=== PATIENT | female | born 1990 | race American Indian/Alaskan Native ===

== ENCOUNTER 2016-07-03 19:14 | Outpatient (CLI) | payer MEDICAID ==
[2016-07-03] MEDS ORDERED: LACTATED RINGERS 1,000 ML IV ONE (19:46)
[2016-07-03 20:33] LABS: Bilirubin,Urine NEG (Negative); Blood,Urine NEG (Negative); Ketones,Urine NEG (Negative); Leukocyte Esterase,Urine NEG (Negative); Mucus,Urine 2+ /HPF; Nitrite,Urine NEG (Negative); Protein,Urine <15 mg/dL mg/dL (Negative); Urobilinogen,Urine < 2.0 mg/dL (<2.0)
[2016-07-03] MEDS ORDERED: DIFLUCAN PO ONE (20:54)
[2016-07-03 22:51] LABS: Basophils % (Auto) 0.6 % (0.0-1.8); Eosinophils % (Auto) 1.2 % (0.0-4.3); Hematocrit 31.9 % (30.3-42.9); Hemoglobin 10.9 gm/dl (10.1-14.3); Mean Corpuscular HGB Conc 34 % (30-34); Mean Corpuscular Hemoglobin 30 pg (28-32); Mean Corpuscular Volume 88 fl (79-97); Platelet Count 168 K/mm3 (140-440); Red Blood Count 3.62 M/mm3 (3.65-5.03); White Blood Count 13.4 K/mm3 (4.5-11.0)
[2016-07-03] MEDS ORDERED: TYLENOL PO ONE (22:57)
[2016-07-03 23:06] LABS: INR 1.08 (0.87-1.13); Partial Thromboplastin Time 32.8 Sec. (24.2-36.6)
[2016-07-03 23:44] VITALS: BP 127/65
--- NOTE | 2016-07-04 09:14 | Ultrasound Report ---
OB ULTRASOUND History: Vaginal bleeding during , trauma. Technique: Transabdominal ultrasound with Doppler interrogation. Gestation: Single Position: Breech Amniotic Fluid: Within normal limits KELTON = not measured cm Placenta: Anterior, fundal Placental Grade: 0 There is no evidence for placental abruption. Heart Rate: 148 BPM Cervical length: 3.2 cm (Normal > 3 cm) NEUROANATOMY VISUALIZED: Choroid Plexus Cisterna Magnum Cerebellum Lateral Ventricle ANATOMY VISUALIZED: Stomach Kidneys Bladder Diaphragm Heart 3 Vessel Cord Abd. Cord Insert SPINE VISUALIZED: Limited spine due to position The following are not demonstrated due to maternal body habitus or lie: Four-chamber heart, spine BPD: 4.5 cm = 19 w 4 d HC: 17.2 cm = 19 w 5 d AC: 14.7 cm = 20 w 0 d FL: 2.8 cm = 18 w 3 d HC/AC Ratio: 1.17 Cephalic Index: 80.8 Estimated Weight: 286 grams LMP: 02/10/16 Clinical age = 20 w 4 d EDC: 11/16/16 US Gest. Age = 19 w 3 d EDC: 11/24/16
== END 2016-07-03 23:53 | disposition home or self-care (01) ==
LOC: TRG 19:14
PROVIDERS: ATTEND Obstetrics & Gynecology
DX: O46.92 Antepartum hemorrhage, unspecified, second trimester (principal); O32.1XX0 Maternal care for breech presentation, not applicable or unspecified; O71.9 Obstetric trauma, unspecified; O47.02 False labor before 37 completed weeks of gestation, second trimester; Z3A.21 21 weeks gestation of pregnancy
CPT/HCPCS: 36415; 76805; 81001; 85025; 85460; 85610; 85730; 86850; 86900; 86901

== ENCOUNTER 2016-08-05 10:11 | Outpatient (CLI) | payer MEDICAID | END 2016-08-05 11:41 | disposition home or self-care (01) | LOC: TRG 10:11 | PROVIDERS: ATTEND Obstetrics & Gynecology | DX: O47.02 False labor before 37 completed weeks of gestation, second trimester (principal); Z3A.26 26 weeks gestation of pregnancy | CPT/HCPCS: 59025 ==

== ENCOUNTER 2016-09-27 13:26 | Outpatient (CLI) | payer MEDICAID ==
[2016-09-27] MEDS ORDERED: LACTATED RINGERS 500 ML IV ONE (13:59)
[2016-09-27 14:40] LABS: Bacteria,Urine 1+ /HPF (Negative); Bilirubin,Urine NEG (Negative); Blood,Urine NEG (Negative); Ketones,Urine 20 mg/dL (Negative); Leukocyte Esterase,Urine NEG (Negative); Nitrite,Urine NEG (Negative); Protein,Urine <15 mg/dL mg/dL (Negative); Urobilinogen,Urine < 2.0 mg/dL (<2.0); WBC,Urine < 1.0 /HPF (0.0-6.0)
[2016-09-27 15:45] VITALS: BP 117/69
== END 2016-09-27 17:38 | disposition home or self-care (01) ==
LOC: TRG 13:26
PROVIDERS: ATTEND Obstetrics & Gynecology
DX: O47.03 False labor before 37 completed weeks of gestation, third trimester (principal); Z3A.32 32 weeks gestation of pregnancy
CPT/HCPCS: 59025; 81001

== ENCOUNTER 2016-10-24 05:13 | Inpatient (IN) | payer MEDICAID ==
[2016-10-24] MEDS ORDERED: XYLOCAINE 2% INFILTRATI ONE (05:43)
[2016-10-24] MEDS ORDERED: BRETHINE IVP PRN (05:43)
[2016-10-24] MEDS ORDERED: ePHEDrine SULFATE IV PRN (05:43)
[2016-10-24] MEDS ORDERED: PHENERGAN PR PRN ×2 (05:43→09:00)
[2016-10-24] MEDS ORDERED: MINERAL OIL PO PRN (05:43)
[2016-10-24] MEDS ORDERED: STADOL IV PRN (05:43)
[2016-10-24] MEDS ORDERED: BRETHINE SUB-Q PRN (05:43)
[2016-10-24] MEDS ORDERED: ZOFRAN IV PRN ×2 (05:43→09:00)
[2016-10-24] MEDS ORDERED: NARCAN 0.4 MG/1 ML IV PRN (05:43)
[2016-10-24] MEDS ORDERED: SUBLIMAZE IV PRN (05:43)
--- NOTE | 2016-10-24 05:58 | History and Physical Report ---
History of Present Illness Date of examination: 10/24/16 Date of admission: 10/24/16 05:28 Chief complaint: leaking and contractions History of present illness: This is a 26 yo EDC 11/17/16 at 36+4 weeks here after accident at [facility]. She was noted to be closed at that hospital and released and then she began having abdominal pain and leaking. Currently she is c/o leaking and chloe and noted to be 4-5 cm . course initiated at 12 weeks with [facility] IUGR at 0% 1st trimester bleeding Hsv2+ ( no lesions) EIF in left ventricle _ APA hx of IUFD in 2nd trimester Past History - Obstetrical History Expected Date of Delivery: 11/17/16 Actual Gestation: 36 Week(s) 4 Day(s) : 3 Para: 0 Hx # Term Pregnancies: 0 Number of Pregnancies: 0 Spontaneous Abortions: 1 Induced : 1 Number of Living Children: 0 Medications and Allergies Allergies Allergy/AdvReac Type Severity Reaction Status Date / Time No Known Allergies Allergy Verified 05/23/14 18:02 Home Medications Medication Instructions Recorded Confirmed Last Taken Type Acetamin/Codeine 120-12Mg/5 ml 5 ml PO TID PRN #30 ml 05/23/14 Unknown Rx [Tylenol/Codeine] Ibuprofen [Motrin] 600 mg PO Q8H PRN #60 tablet 05/23/14 Unknown Rx Ondansetron [Zofran Odt] 4 mg PO Q6H #20 tab.rapdis 05/23/14 Unknown Rx HYDROcodone/APAP 5-325 [Elmo 1 each PO Q6HR PRN #14 tablet 04/18/15 Unknown Rx 5/325] Ondansetron [Zofran Odt] 4 mg PO TID #14 tab.rapdis 04/18/15 Unknown Rx Fexofenadine/Pseudoephedrine 1 each PO Q12H #20 tab.er.12h 05/04/15 Unknown Rx [Miya-D 12 Hour Tablet] Prednisone [predniSONE 10 mg 10 mg PO .TAPER #1 tab.ds.pk 05/04/15 Unknown Rx (6-Day Pack, 21 Tabs)] guaiFENesin/CODEINE [Robitussin AC] 5 ml PO Q8H #120 ml 05/04/15 Unknown Rx Review of Systems All systems: negative Genitourinary: leakage of fluid, contractions - Physical Exam Breasts: Positive: normal Cardiovascular: Regular rate, Normal S1 Lungs: Positive: Clear to auscultation, Normal air movement Abdomen: Positive: normal appearance, soft, distention, normal bowel sounds. Negative: tenderness Genitourinary (Female): Positive: normal external genitalia, normal perenium Vulva: both: normal Vagina: Positive: normal moisture Uterus: Positive: normal size, normal contour Anus/Rectum: Positive: normal perianal skin Extremities: Positive: normal Deep Tendon Reflex Grade: Normal +2 - Obstetrical FHR: auscultation normal, category 1 Cervical Dilatation: 4 Uterine Tone Measurement Phase: Contraction Uterine Contraction Intensity: Mild Results All other labs normal. Assessment and Plan A/P IUP 36+4 weeks IUGR Active labor SROM clear admit to labor and delivery IVF, labs EFM ( close monitor) offer epidural alert peds of care EIF, IUGR expect vaginal delivery
[2016-10-24] MEDS ORDERED: LACTATED RINGERS 1,000 ML IV SCH (06:00)
[2016-10-24] MEDS ORDERED: PITOCin/NS 20 UNIT/1000ML DRIP 20 UNITS/1,000 ML BAG IV SCH ×2 (06:00→09:00)
[2016-10-24 06:43] LABS: Hematocrit 38.9 % (30.3-42.9); Mean Corpuscular HGB Conc 33 % (30-34); Mean Corpuscular Hemoglobin 29 pg (28-32); Mean Corpuscular Volume 86 fl (79-97); Red Blood Count 4.53 M/mm3 (3.65-5.03); Red Cell Distribution Width 14.5 % (13.2-15.2); White Blood Count 12.4 K/mm3 (4.5-11.0)
[2016-10-24 06:46] LABS: Platelet Count 143 K/mm3 (140-440)
--- NOTE | 2016-10-24 07:50 | Procedure Note ---
OB Delivery Note - Delivery Date of Delivery: 10/24/16 Surgeon: DARIAN ENGLISH Estimated blood loss: other (400 cc) - Vaginal Delivery presentation: vertex Delivery position: OA Intrapartum events: labor-<37 weeks Delivery induction: none Delivery monitor: external FHT, external uterine Route of delivery: Delivery placenta: spontaneous Delivery cord: 3 umbilical vessels Episiotomy: none Delivery laceration: none Anesthesia: none Delivery comments: I was contacted at 650 of the patient noted to be complete and +1 station. I arrived at 715 after delivery. Nurse delivered baby vaginally after 2 pushes at 705 pm in OA presentation. The nares suctioned and cord cut and clamped. [facility] delivered placenta at 713a intact spontaneous with 3 vesel cord. apgars 9 and 9 weight 4 pounds 7 oz without complications of a viable male . Patient tolerated procedure well. EBL 400 cc - Infant A at 1 minute: 9 at 5 minutes: 9 Infant Gender: Male (weight 4 pounds 7 oz)
[2016-10-24] MEDS ORDERED: NORCO 5/325 PO PRN (09:00)
[2016-10-24] MEDS ORDERED: SODIUM CHLORIDE FLUSH SYRINGE 10 ML IV PRN (09:00)
[2016-10-24] MEDS ORDERED: TYLENOL PO PRN (09:00)
[2016-10-24] MEDS ORDERED: TORADOL IV PRN (09:00)
[2016-10-24] MEDS ORDERED: SENOKOT S PO SCH (09:00)
[2016-10-24] MEDS ORDERED: BENADRYL PO PRN (09:00)
[2016-10-24] MEDS ORDERED: PHENERGAN PO PRN (09:00)
[2016-10-24] MEDS ORDERED: TUCKS PAD TP PRN (09:00)
[2016-10-24] MEDS ORDERED: LANSINOH TP PRN (09:00)
[2016-10-24] MEDS: COLACE PO SCH ×2 (09:20→22:00)
[2016-10-24] MEDS: PERCOCET 5/325 PO PRN ×2 (09:20→19:37)
[2016-10-24] MEDS: PRENATAL VITAMIN PO SCH (09:20)
[2016-10-24 09:50] LABS: Urine Drugs of Abuse Note Disclamer
[2016-10-24] MEDS ORDERED: DULCOLAX PR PRN (10:00)
[2016-10-24] MEDS: MOTRIN PO SCH ×2 (12:08→17:11)
[2016-10-24 20:09] LABS: Hematocrit 36.5 % (30.3-42.9); Hemoglobin 12.2 gm/dl (10.1-14.3)
[2016-10-24] MEDS ORDERED: MILK OF MAGNESIA PO PRN (22:00)
[2016-10-25] MEDS: PERCOCET 5/325 PO PRN ×3 (01:02→21:06)
[2016-10-25] MEDS: MOTRIN PO SCH ×4 (01:02→17:42)
[2016-10-25] MEDS ORDERED: BOOSTRIX IM ONE (06:00)
--- NOTE | 2016-10-25 08:43 | Progress Note ---
Assessment and Plan A: Stable PP Day 1 PP H/H: 12.2/36.5 P: D/C in am Subjective - Subjective Date of service: 10/25/16 Patient reports: appetite normal, voiding normally, pain well controlled, ambulating normally : doing well Objective - Vital Signs Latest vital signs: Vital Signs Temp Pulse Resp BP 10/25/16 00:35 97.9 F 85 20 127/76 10/24/16 16:30 98.0 F 87 18 136/83 10/24/16 12:40 97.6 F 86 18 127/86 10/24/16 09:00 98.3 F 79 18 132/79 Intake and Output 10/24/16 10/25/16 10/25/16 22:59 06:59 14:59 Intake Total 600 360 Output Total 800 Balance -200 360 Intake: Oral 600 360 Output: Urine 800 Void 800 Other: Total, Intake Amount 240 120 Total, Output Amount 400 # Voids Void 1 - Exam Breasts: Present: deferred Abdomen: Present: normal appearance, soft. Absent: distention, tenderness Vulva: both: normal Uterus: Present: normal, firm, fundal height below umbilicus. Absent: bogginess , tenderness Extremities: Present: normal
--- NOTE | 2016-10-25 08:46 | Discharge Summary ---
Providers - Providers Date of Admission: 10/24/16 05:28 Date of discharge: 10/26/16 Attending physician: DARIAN ENGLISH MD 10/24/16 12:19 Consult to Case Management [CONS] Routine Services Needed at Discharge: Other Notified:: [id number] Additional Physician Instructions: UDS positive for marijuana. Primary care physician: DARIAN ENGLISH MD Hospitalization Reason for admission: active labor Episiotomy: none Laceration: none Other procedures: none complications: none [place] baby: male Condition at discharge: Good Disposition: DC-01 TO HOME OR SELFCARE Plan - Provider Discharge Summary Activity: routine, no sex for 6 weeks, no heavy lifting 4 weeks, no strenuous exercise Diet: routine Instructions: routine Additional instructions: [] Smoking cessation referral if applicable(refer to patient education folder for contact #) [] Refer to [facility]'s [facility] Booklet Call your doctor immediately for: * Fever > 100.5 * Heavy vaginal bleeding ( >1 pad per hour) * Severe persistent headache * Shortness of breath * Reddened, hot, painful area to leg or breast * Drainage or odor from incision. * Keep incision clean and dry at all times and follow doctor's instructions regarding bathing/showering - Follow up plan Follow up: DARIAN ENGLISH MD [Primary Care Provider] - MATT ONEIL CNM [Advanced Practice Nurse] - (RTO 4 weeks )
[2016-10-25] MEDS: PRENATAL VITAMIN PO SCH (10:39)
[2016-10-25] MEDS: COLACE PO SCH (10:39)
[2016-10-25] MEDS ORDERED: M-M-R II VACCINE SUB-Q ONE (11:00)
[2016-10-26 01:12] VITALS: BP 136/71
[2016-10-26] MEDS: COLACE PO SCH (02:14)
[2016-10-26] MEDS: MOTRIN PO SCH ×3 (02:56→11:43)
[2016-10-26] MEDS: PERCOCET 5/325 PO PRN (02:57)
[2016-10-26] MEDS: PRENATAL VITAMIN PO SCH (11:45)
== END 2016-10-26 14:00 | disposition home or self-care (01) | DRG 774 ==
LOC: TRG 05:13 → LD 05:28 → TRG 05:28 → OB 09:04
PROVIDERS: ADMIT Obstetrics & Gynecology; ATTEND Obstetrics & Gynecology
PROC: 10E0XZZ Delivery of Products of Conception, External Approach (ICD-10-PCS; principal; 2016-10-24)
PROC: 3E0234Z Introduction of Serum, Toxoid and Vaccine into Muscle, Percutaneous Approach (ICD-10-PCS; 2016-10-25)
DX: O60.14X0 Preterm labor third trimester with preterm delivery third trimester, not applicable or unspecified (principal); O98.513 Other viral diseases complicating pregnancy, third trimester; O36.5930 Maternal care for other known or suspected poor fetal growth, third trimester, not applicable or unspecified; Z3A.36 36 weeks gestation of pregnancy; Z37.0 Single live birth; Z23 Encounter for immunization; O99.52 Diseases of the respiratory system complicating childbirth; J45.909 Unspecified asthma, uncomplicated; B00.9 Herpesviral infection, unspecified; Z79.899 Other long term (current) drug therapy
CPT/HCPCS: 36415; 80307; 85014; 85018; 85027; 86592; 86850; 86900; 86901; 88307; J2590; J3010; J7120

== ENCOUNTER 2018-05-09 11:36 | Emergency (ER) | payer MEDICAID ==
--- NOTE | 2018-05-09 12:59 | Emergency Department Report ---
Chief Complaint: Urogenital-Female Stated Complaint: CHECK UP/LFT EYE PAIN Time Seen by Provider: 05/09/18 12:56 - HPI History of Present Illness: pt here for preg test and std check no vag bleeding or dc not MSE completed no life threat - Exam Vital Signs: Vital Signs 05/09/18 11:41 Temperature 97.8 F Pulse Rate 77 Respiratory 16 Rate Blood Pressure 113/70 O2 Sat by Pulse 100 Oximetry MSE screening note: Focused history and physical exam performed. Due to findings the following was ordered: ED Disposition for MSE Condition: Stable
[2018-05-09 13:32] LABS: Bilirubin,Urine NEG (Negative); Blood,Urine NEG (Negative); Color,Urine Yellow (Yellow); Mucus,Urine FEW /HPF; Protein,Urine <15 mg/dL mg/dL (Negative); Urobilinogen,Urine < 2.0 mg/dL (<2.0)
[2018-05-09 13:36] LABS: HCG Qualitative,Urine Negative (Negative)
[2018-05-09] MEDS ORDERED: BSS 1 DROPS, TETRACAINE 0.5% 1 DROPS, FUL-GLO 1 MG OS ONE (14:16)
[2018-05-09] MEDS ORDERED: TETRACAINE 0.5% ONE (14:19)
[2018-05-09] MEDS ORDERED: FUL-GLO OP ONE (14:19)
--- NOTE | 2018-05-09 15:34 | Emergency Department Report ---
ED Female HPI - General Chief complaint: Urogenital-Female Stated complaint: CHECK UP/LFT EYE PAIN Time Seen by Provider: 05/09/18 12:56 Source: patient Mode of arrival: Ambulatory Limitations: No Limitations - History of Present Illness Initial comments: 28-year-old female with no significant past medical history presents to the hospital with 2 complaints. She complains of left eye and face itching and vaginal discharge. The eye and face has been itching for 2 days. Started after eating a new foods. Patient states he had a pruritic rash over her face that improve topical hydrocortisone. He complains of chronic blurred vision is unchanged but her glasses broke a year ago. She denies fever or URI symptoms. Second complaint of vaginal discharge. Patient she has a discharge with fishy odor with history of BV in the past. Pt recently self treated with script called in by her central office associate without improvement. Patient finished 7 days of Flagyl 500 twice a day 4 days ago. She is sexually active with her boyfriend and does not use condoms. He denies pelvic pain. WATER OPERATOR doctor: Dr. Jacqueline Meneses - Related Data Previous Rx's Medication Instructions Recorded Last Taken Type Fexofenadine/Pseudoephedrine 1 each PO Q12H #20 tab.er.12h 05/04/15 Unknown Rx [Miya-D 12 Hour Tablet] Clindamycin [Clindamycin CAP] 300 mg PO BID #14 capsule 05/09/18 Unknown Rx Polymyxin B Sulf/Trimethoprim 10 ml OS Q4HR 7 Days #1 drops 05/09/18 Unknown Rx [Polytrim Eye Drops] diphenhydrAMINE [Benadryl CAP] 25 mg PO Q6HR PRN #20 capsule 05/09/18 Unknown Rx Allergies Allergy/AdvReac Type Severity Reaction Status Date / Time No Known Allergies Allergy Verified 05/09/18 11:37 ED Review of Systems ROS: Stated complaint: CHECK UP/LFT EYE PAIN Other details as noted in HPI Comment: All other systems reviewed and negative ED Past Medical Hx - Past Medical History Hx Hypertension: No Hx Congestive Heart Failure: No Hx Diabetes: No Hx Deep Vein Thrombosis: No Hx Renal Disease: No Hx Sickle Cell Disease: No Hx Seizures: No Hx Asthma: No Hx COPD: No Hx HIV: No - Surgical History Additional Surgical History: STYES REMOVED FROM EYES - Social History Smoking Status: Current Every Day Smoker Substance Use Type: Alcohol, Marijuana - Medications Home Medications: Home Medications Medication Instructions Recorded Confirmed Last Taken Type Fexofenadine/Pseudoephedrine 1 each PO Q12H #20 tab.er.12h 05/04/15 Unknown Rx [Miya-D 12 Hour Tablet] Clindamycin [Clindamycin CAP] 300 mg PO BID #14 capsule 05/09/18 Unknown Rx Polymyxin B Sulf/Trimethoprim 10 ml OS Q4HR 7 Days #1 drops 05/09/18 Unknown Rx [Polytrim Eye Drops] diphenhydrAMINE [Benadryl CAP] 25 mg PO Q6HR PRN #20 capsule 05/09/18 Unknown Rx ED Physical Exam - General Limitations: No Limitations - Other Other exam information: General: No limitations, patient is alert in no acute distress Head exam: Atraumatic, normocephalic Eyes exam: Erythema to the conjunctiva of the left eye primarily medial side. Clear discharge. Extraocular movements intact. No uptake with fluorescein staining. Visual acuity bilateral 20/25, right eye 20/70, left eye 20/70 without her glasses. ENT: Moist mucous membrane, normal oropharynx Neck exam: Normal inspection, full range of motion, no meningismus nontender Respiratory exam: Clear to auscultation bilateral, no wheezes, rales, crackles Cardiovascular: Normal rate and rhythm, normal heart sounds Abdomen: Soft, nondistended, and nontender, with normal bowel sounds, no rebound, or guarding : External vaginal piercing. White vaginal discharge without CMT or adnexal tenderness. No cervical lesions Extremity: Full range of motion normal inspection no deformity Back: Normal Inspection, full range of motion, no tenderness Neurologic: Alert, oriented x3, cranial nerves intact, no motor or sensory defi cit Psychiatric: normal affect, normal mood Skin: Warm, dry, intact ED Course Vital Signs 05/09/18 11:41 Temperature 97.8 F Pulse Rate 77 Respiratory 16 Rate Blood Pressure 113/70 O2 Sat by Pulse 100 Oximetry ED Medical Decision Making - Lab Data Lab Results 05/09/18 Range/Units 13:04 Urine Color Yellow (Yellow) Urine Turbidity Clear (Clear) Urine pH 6.0 (5.0-7.0) Ur Specific [place] 1.011 (1.003-1.030) Urine Protein <15 mg/dl (Negative) mg/dL Urine Glucose (UA) Neg (Negative) mg/dL Urine Ketones Neg (Negative) mg/dL Urine Blood Neg (Negative) Urine Nitrite Neg (Negative) Urine Bilirubin Neg (Negative) Urine Urobilinogen < 2.0 (<2.0) mg/dL Ur Leukocyte Esterase Neg (Negative) Urine WBC (Auto) 1.0 (0.0-6.0) /HPF Urine RBC (Auto) 2.0 (0.0-6.0) /HPF U Epithel Cells (Auto) 2.0 (0-13.0) /HPF Urine Mucus Few /HPF Urine HCG, Qual Negative (Negative) + clue cells, no trich, no yeast - Medical Decision Making Patient will be empiric treated for bacterial conjunctivitis but may be allergic. Benadryl also be provided. Patient be treated for BV with outpatient WATER OPERATOR follow-up plan for 2 weeks. We'll try clindamycin since patient just recently finished a course of Flagyl without improvement - Differential Diagnosis vaginitis, cervicitis, pinkeye, allergic versus bacterial conjunctivae Critical Care Time: No Critical care attestation.: If time is entered above; I have spent that time in minutes in the direct care of this critically ill patient, excluding procedure time. ED Disposition Clinical Impression: Bacterial vaginosis, Conjunctivitis, left eye, Allergic dermatitis Disposition: DC-01 TO HOME OR SELFCARE Is pt being admited?: No Does the pt Need Aspirin: No Condition: Stable Instructions: Bacterial Vaginosis (ED), Allergies (ED), Conjunctivitis (ED) Additional Instructions: Take the medication as prescribed. Follow up with your doctor or the clinic/doctor provided. Return if symptoms worsen as indicated by your discharge instructions. [facility] gonorrhea and chlamydia tests are pending and take approximately 3-4 days result. You may obtain results in medical records with a photo ID. You may also obtain results through the follow-up doctor office via medical record request. Prescriptions: Clindamycin [Clindamycin CAP] 300 mg PO BID #14 capsule diphenhydrAMINE [Benadryl CAP] 25 mg PO Q6HR PRN #20 capsule PRN Reason: Itching Polymyxin B Sulf/Trimethoprim [Polytrim Eye Drops] 10 ml OS Q4HR 7 Days #1 drops Referrals: SEAN BEAN [Primary Care Provider] - 3-5 Days (Primary care doctor) JACQUELINE MENESES MD [Staff Physician] - 3-5 Days (WATER OPERATOR doctor ) Forms: STI Treatment and Prevention Time of Disposition: 15:43
[2018-05-09 15:56] VITALS: BP 120/72
== END 2018-05-09 15:55 | disposition home or self-care (01) ==
LOC: ED 11:36
DX: H10.9 Unspecified conjunctivitis (principal); N76.0 Acute vaginitis; L23.9 Allergic contact dermatitis, unspecified cause; F17.200 Nicotine dependence, unspecified, uncomplicated; F12.10 Cannabis abuse, uncomplicated
CPT/HCPCS: 81001; 81025; 87210; 87591

== ENCOUNTER 2020-02-29 09:46 | Emergency (ER) | payer MEDICAID ==
[2020-02-29 10:14] VITALS: BP 131/74
[2020-02-29 10:38] LABS: Basophils # (Auto) 0.1 K/mm3 (0.0-0.1); Basophils % (Auto) 1.1 % (0.0-1.8); Eosinophils # (Auto) 0.1 K/mm3 (0.0-0.4); Eosinophils % (Auto) 1.3 % (0.0-4.3); Hematocrit 44.2 % (30.3-42.9); Hemoglobin 14.9 gm/dl (10.1-14.3); Lymphocytes % (Auto) 24.1 % (13.4-35.0); Mean Corpuscular HGB Conc 34 % (30-34); Mean Corpuscular Volume 93 fl (79-97); Monocytes # (Auto) 0.4 K/mm3 (0.0-0.8); Monocytes % (Auto) 4.9 % (0.0-7.3); Red Blood Count 4.75 M/mm3 (3.65-5.03); Red Cell Distribution Width 13.7 % (13.2-15.2)
--- NOTE | 2020-02-29 10:48 | Emergency Department Report ---
ED HPI - General Chief complaint: Vaginal Bleeding Stated complaint: /BLEEDING CLOTS Time Seen by Provider: 02/29/20 10:44 Source: patient Mode of arrival: Ambulatory Limitations: No Limitations - History of Present Illness Initial comments: This is a pleasant 30-year-old female presents the emergency department with a chief complaint of vaginal bleeding. She is approximately 6 weeks . She started bleeding last night and went to [facility] where she had a work-up including lab work and an ultrasound that was apparently unremarkable. She reports she left the hospital and went home to follow-up with her SENIOR CARE SPECIALIST but her bleeding increased which caused her to come back into the emergency department today. She denies any associated fever, chills, night sweats, headache, dizziness, blurry vision, nausea, vomiting, diarrhea, chest pain, shortness of breath or any other associated symptoms. - Related Data Previous Rx's Medication Instructions Recorded Last Taken Type Fexofenadine/Pseudoephedrine 1 each PO Q12H #20 tab.er.12h 05/04/15 Unknown Rx [Miya-D 12 Hour Tablet] Clindamycin [Clindamycin CAP] 300 mg PO BID #14 capsule 05/09/18 Unknown Rx Polymyxin B Sulf/Trimethoprim 10 ml OS Q4HR 7 Days #1 drops 05/09/18 Unknown Rx [Polytrim Eye Drops] diphenhydrAMINE [Benadryl CAP] 25 mg PO Q6HR PRN #20 capsule 05/09/18 Unknown Rx Allergies Allergy/AdvReac Type Severity Reaction Status Date / Time No Known Allergies Allergy Verified 05/09/18 11:37 ED Review of Systems ROS: Stated complaint: /BLEEDING CLOTS Other details as noted in HPI Comment: All other systems reviewed and negative Constitutional: denies: chills, fever Eyes: denies: eye pain, eye discharge, vision change ENT: denies: ear pain, throat pain Respiratory: denies: cough, shortness of breath, wheezing Cardiovascular: denies: chest pain, palpitations Endocrine: no symptoms reported Gastrointestinal: as per HPI, abdominal pain. denies: nausea, diarrhea Genitourinary: abnormal menses. denies: urgency, dysuria, discharge Musculoskeletal: denies: back pain, joint swelling, arthralgia Skin: denies: rash, lesions Neurological: denies: headache, weakness, paresthesias Psychiatric: denies: anxiety, depression Hematological/Lymphatic: denies: easy bleeding, easy bruising ED Past Medical Hx - Past Medical History Previous Medical History?: Yes Hx Hypertension: No Hx Congestive Heart Failure: No Hx Diabetes: No Hx Deep Vein Thrombosis: No Hx Renal Disease: No Hx Sickle Cell Disease: No Hx Seizures: No Hx Asthma: Yes Hx COPD: No Hx HIV: No - Surgical History Past Surgical History?: No Additional Surgical History: STYES REMOVED FROM EYES - Social History Smoking Status: Current Every Day Smoker Substance Use Type: Alcohol, Marijuana - Medications Home Medications: Home Medications Medication Instructions Recorded Confirmed Last Taken Type Fexofenadine/Pseudoephedrine 1 each PO Q12H #20 tab.er.12h 05/04/15 Unknown Rx [Miya-D 12 Hour Tablet] Clindamycin [Clindamycin CAP] 300 mg PO BID #14 capsule 05/09/18 Unknown Rx Polymyxin B Sulf/Trimethoprim 10 ml OS Q4HR 7 Days #1 drops 05/09/18 Unknown Rx [Polytrim Eye Drops] diphenhydrAMINE [Benadryl CAP] 25 mg PO Q6HR PRN #20 capsule 05/09/18 Unknown Rx ED Physical Exam - General Limitations: No Limitations General appearance: alert, in no apparent distress - Head Head exam: Present: atraumatic, normocephalic - Eye Eye exam: Present: normal appearance, PERRL, EOMI Pupils: Present: normal accommodation - ENT ENT exam: Present: normal exam, normal orophraynx, mucous membranes moist - Neck Neck exam: Present: normal inspection, full ROM. Absent: tenderness, meningismus - Respiratory Respiratory exam: Present: normal lung sounds bilaterally. Absent: respiratory distress, wheezes, rales, rhonchi, stridor - Cardiovascular Cardiovascular Exam: Present: regular rate, normal rhythm, normal heart sounds. Absent: systolic murmur, diastolic murmur, rubs, gallop - GI/Abdominal GI/Abdominal exam: Present: soft, normal bowel sounds. Absent: distended, tenderness, guarding, rebound, rigid - Extremities Exam Extremities exam: Present: normal inspection, full ROM, normal capillary refill. Absent: tenderness - Back Exam Back exam: Present: normal inspection, full ROM. Absent: tenderness, CVA tenderness (R), CVA tenderness (L) - Neurological Exam Neurological exam: Present: alert, oriented X3, normal gait - Psychiatric Psychiatric exam: Present: normal affect, normal mood - Skin Skin exam: Present: warm, dry, intact, normal color. Absent: rash ED Course Vital Signs 02/29/20 10:13 Temperature 97.9 F Pulse Rate 83 Respiratory 16 Rate Blood Pressure 131/74 [Right] O2 Sat by Pulse 100 Oximetry ED Medical Decision Making - Lab Data Result diagrams: 02/29/20 10:21 02/29/20 11:03 Lab Results 02/29/20 02/29/20 02/29/20 Range/Units 10:21 10:21 10:21 WBC 8.4 (4.5-11.0) K/mm3 RBC 4.75 (3.65-5.03) M/mm3 Hgb 14.9 H (10.1-14.3) gm/dl Hct 44.2 H (30.3-42.9) % MCV 93 (79-97) fl MCH 31 (28-32) pg MCHC 34 (30-34) % RDW 13.7 (13.2-15.2) % Plt Count 183 (140-440) K/mm3 Lymph % (Auto) 24.1 (13.4-35.0) % Armstrong % (Auto) 4.9 (0.0-7.3) % Eos % (Auto) 1.3 (0.0-4.3) % Baso % (Auto) 1.1 (0.0-1.8) % Lymph # (Auto) 2.0 (1.2-5.4) K/mm3 Armstrong # (Auto) 0.4 (0.0-0.8) K/mm3 Eos # (Auto) 0.1 (0.0-0.4) K/mm3 Baso # (Auto) 0.1 (0.0-0.1) K/mm3 Seg Neutrophils % 68.6 (40.0-70.0) % Seg Neutrophils # 5.8 (1.8-7.7) K/mm3 Sodium (137-145) mmol/L Potassium (3.6-5.0) mmol/L Chloride (98-107) mmol/L Carbon Dioxide (22-30) mmol/L Anion Gap mmol/L BUN (7-17) mg/dL Creatinine (0.6-1.2) mg/dL Estimated GFR ml/min BUN/Creatinine Ratio % Glucose (65-100) mg/dL Calcium (8.4-10.2) mg/dL HCG, Quant 2832 H (0-4) mIU/mL Blood Type B POSITIVE 02/29/20 Range/Units 11:03 WBC (4.5-11.0) K/mm3 RBC (3.65-5.03) M/mm3 Hgb (10.1-14.3) gm/dl Hct (30.3-42.9) % MCV (79-97) fl MCH (28-32) pg MCHC (30-34) % RDW (13.2-15.2) % Plt Count (140-440) K/mm3 Lymph % (Auto) (13.4-35.0) % Armstrong % (Auto) (0.0-7.3) % Eos % (Auto) (0.0-4.3) % Baso % (Auto) (0.0-1.8) % Lymph # (Auto) (1.2-5.4) K/mm3 Armstrong # (Auto) (0.0-0.8) K/mm3 Eos # (Auto) (0.0-0.4) K/mm3 Baso # (Auto) (0.0-0.1) K/mm3 Seg Neutrophils % (40.0-70.0) % Seg Neutrophils # (1.8-7.7) K/mm3 Sodium 139 (137-145) mmol/L Potassium 3.7 (3.6-5.0) mmol/L Chloride 102.1 (98-107) mmol/L Carbon Dioxide 27 (22-30) mmol/L Anion Gap 14 mmol/L BUN 5 L (7-17) mg/dL Creatinine 0.7 (0.6-1.2) mg/dL Estimated GFR > 60 ml/min BUN/Creatinine Ratio 7 % Glucose 88 (65-100) mg/dL Calcium 9.5 (8.4-10.2) mg/dL HCG, Quant (0-4) mIU/mL Blood Type - Radiology Data Radiology results: report reviewed [facility] [address] [place] [address] Ultrasound Report Signed Patient: LIBBY LANDAVERDE MR#: [id number] : 1990 Acct:[id number] Age/Sex: 30 / F ADM Date: 02/29/20 Loc: ED Attending Dr: Ordering Physician: MICHAEL MATHEW Date of Service: 02/29/20 Procedure(s): US OB transvaginal Accession Number(s): [id number] cc: MICHAEL MATHEW FIRSTTRIMESTER OBSTETRIC ULTRASOUND ULTRASOUND OB TRANSVAGINAL HISTORY: Vaginal bleeding for one day, 6 weeks COMPARISON: None. TECHNIQUE: Routine transabdominal and transvaginal OB ultrasound performed. FINDINGS: The uterus is anteverted and measures 9.2 x 4.4 x 4.1 cm. A 1 cm intramural fibroid is identified in the anterior wall. The endometrial stripe is heterogeneous measures 12 mm. No intrauterine g estational sac is detected on ultrasound. Trace fluid is noted in the endometrial canal. The right ovary measures 3.7 x 1.7 x 2.7 cm and contains a 1.6 cm corpus luteum cyst. The left ovary measures 1.9 x 1.6 x 1.2 cm. No focal lesion. Color Doppler imaging demonstrates symmetric flow to the adnexa. IMPRESSION No intrauterine is detected on ultrasound. The endometrial stripe is slightly thickened and complex measuring 12 mm in thickness. These findings are concerning for s pontaneous with retained products of conception. Signer Name: Elia Hartley Jr, MD Signed: 02/29/2020 11:31 AM Workstation Name: [id number] Transcribed By: TTR Dictated By: ELIA HARTLEY JR, MD Electronically Authenticated By: ELIA HARTLEY JR, MD Signed Date/Time: 02/29/20 1131 - Medical Decision Making Unfortunately the patient's ultrasound returned consistent with spontaneous . Due to the reported history of intrauterine seen at the other ER last night with a heart rate today with the ultrasound showing no IUP this is concerning for spontaneous . The patient is hemodynamically stable and in no acute distress. I will give her a work note for this week and she already has follow-up with her SENIOR CARE SPECIALIST this which is 4 days from now. Recommend she return to the emergency department she develops any change or worsening symptoms such as heavy bleeding greater than a pad an hour, severe pain, dizziness, syncope or any other change or worsening symptoms. She verbalized understand these instructions and all of her questions were answered. - Differential Diagnosis Threatened miscarriage, ectopic , dysmenorrhea Critical care attestation.: If time is entered above; I have spent that time in minutes in the direct care o f this critically ill patient, excluding procedure time. ED Disposition Clinical Impression: Spontaneous Disposition: DC-01 TO HOME OR SELFCARE Is pt being admited?: No Condition: Stable Instructions: Miscarriage, [id number] Referrals: NIR LOUISE MD [Primary Care Provider] - 3-5 Days Forms: Work/School Release Form(ED) Time of Disposition: 12:13
[2020-02-29 10:52] LABS: Platelet Count 183 K/mm3 (140-440)
--- NOTE | 2020-02-29 11:36 | Ultrasound Report ---
FIRSTTRIMESTER OBSTETRIC ULTRASOUND ULTRASOUND OB TRANSVAGINAL HISTORY: Vaginal bleeding for one day, 6 weeks COMPARISON: None. TECHNIQUE: Routine transabdominal and transvaginal OB ultrasound performed. FINDINGS: The uterus is anteverted and measures 9.2 x 4.4 x 4.1 cm. A 1 cm intramural fibroid is identified in the anterior wall. The endometrial stripe is heterogeneous measures 12 mm. No intrauterine gestational sac is detected o n ultrasound. Trace fluid is noted in the endometrial canal. The right ovary measures 3.7 x 1.7 x 2.7 cm and contains a 1.6 cm corpus luteum cyst. The left ovary measures 1.9 x 1.6 x 1.2 cm. No focal lesion. Color Doppler imaging demonstrates symmetric flow to the adnexa. IMPRESSION No intrauterine is detected on ultrasound. The endometrial stripe is slightly thickened and complex measuring 12 mm in thickness. These findings are concerning for spontaneous with re tained products of conception. Signer Name: Elia Hartley Jr, MD Signed: 02/29/2020 11:31 AM Workstation Name: [id number]
[2020-02-29 11:44] LABS: Blood Urea Nitrogen 5 mg/dL (7-17); Calcium 9.5 mg/dL (8.4-10.2); Hemolysis Index 1
[2020-02-29 11:45] LABS: BUN/Creatinine Ratio 7
[2020-02-29 12:01] LABS: Bacteria,Urine 1+ /HPF (Negative); Bilirubin,Urine NEG (Negative); Blood,Urine LG (Negative); Color,Urine Straw (Yellow); Protein,Urine <15 mg/dL mg/dL (Negative); Urobilinogen,Urine < 2.0 mg/dL (<2.0)
== END 2020-02-29 12:24 | disposition home or self-care (01) ==
LOC: ED 09:46
DX: O03.9 Complete or unspecified spontaneous abortion without complication (principal); J45.909 Unspecified asthma, uncomplicated; F17.200 Nicotine dependence, unspecified, uncomplicated; F12.10 Cannabis abuse, uncomplicated; Z79.2 Long term (current) use of antibiotics; Z79.899 Other long term (current) drug therapy; Z98.890 Other specified postprocedural states; Z3A.01 Less than 8 weeks gestation of pregnancy
CPT/HCPCS: 36415; 76801; 76817; 80048; 81001; 84702; 85025; 86900; 86901

== ENCOUNTER 2020-09-01 11:18 | Emergency (ER) | payer MEDICAID ==
[2020-09-01 12:09] VITALS: BP 128/83
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
--- NOTE | 2020-09-01 13:59 | Ultrasound Report ---
ULTRASOUND OBSTETRIC INDICATION: First trimester with cramping and vaginal spotting. TECHNIQUE: Transabdominal. COMPARISON: Pelvic ultrasound performed on 02/29/2020. FINDINGS: A twin intrauterine is noted. FETUS A: GESTATIONAL SAC: Well-defined oval shape and intrauterine in location. YOLK SAC: No significant abnormality. EMBRYO/FETUS: No significant abnormality. - [place]-Rump Length = 0.78 cm = 6 weeks, 5 day(s). - Heart Rate = 111 beats per minute. FETUS B: GESTATIONAL SAC: Well-defined oval shape and intrauterine in location. YOLK SAC: No significant abnormality. EMBRYO/FETUS: No significant abnormality. - [place]-Rump Length = 0.64 cm = 6 weeks, 3 day(s). - Heart Rate = 146 beats per minute. ADNEXA: No significant abnormality. FREE FLUID: None. ADDITIONAL FINDINGS: A probable fibroid located along the lower uterine segment measures 1.2 x 1.1 x 1.3 cm. IMPRESSION: 1. Living twin intrauterine with estimated sonographic age of 6 weeks, 3 day(s). 2. No acute abnormality of the pelvis. Signer Name: Rodriguez Ware MD Signed: 09/01/2020 1:55 PM Workstation Name: [id number]
[2020-09-01 14:10] LABS: Bacteria,Urine 3+ /HPF (Negative); Bilirubin,Urine NEG (Negative); Blood,Urine NEG (Negative); Color,Urine Yellow (Yellow); Mucus,Urine 2+ /HPF; Protein,Urine <15 mg/dL mg/dL (Negative)
--- NOTE | 2020-09-01 14:12 | Ultrasound Report ---
Of local [employer]) calcified ULTRASOUND OBSTETRIC INDICATION / CLINICAL INFORMATION: , cramping, spotting. TECHNIQUE: Transabdominal. COMPARISON: None available. FINDINGS: Twin gestation GESTATIONAL SAC: Well-defined oval shape and intrauterine in location. YOLK SAC: No significant abnormality. EMBRYO/FETUS: A No significant abnormality. - [place]-Rump Length = 6.4 cm = 6 weeks, 5 day(s). - Heart Rate, beats per minute (if present) = 128 EMBRYO/FETUS: B No significant abnormality. - [place]-Rump Length = 6.4 cm = 6 weeks, 3 day(s). - Heart Rate, beats per minute (if present) = 146 ADNEXA: No significant abnormality. FREE FLUID: None. ADDITIONAL FINDINGS: None. IMPRESSION: 1. Twin living intrauterine as noted with crown-rump measurements estimating a earlier preg nathalia as compared to Gestational sac measurements recommend clinical correlation Signer Name: Issa Vargas MD Signed: 09/01/2020 2:07 PM Workstation Name: [id number]
[2020-09-01 14:17] LABS: Basophils # (Auto) 0.1 K/mm3 (0.0-0.1); Eosinophils # (Auto) 0.1 K/mm3 (0.0-0.4); Eosinophils % (Auto) 0.7 % (0.0-4.3); Lymphocytes # (Auto) 2.4 K/mm3 (1.2-5.4); Mean Corpuscular Volume 90 fl (79-97); Monocytes # (Auto) 0.6 K/mm3 (0.0-0.8)
[2020-09-01 14:22] LABS: Basophils % (Auto) 0.7 % (0.0-1.8); Hematocrit 43.1 % (30.3-42.9); Hemoglobin 14.9 gm/dl (10.1-14.3); Lymphocytes % (Auto) 23.9 % (13.4-35.0); Mean Corpuscular HGB Conc 35 % (30-34); Red Blood Count 4.77 M/mm3 (3.65-5.03); Red Cell Distribution Width 13.8 % (13.2-15.2)
[2020-09-01 14:42] LABS: Alanine Aminotransferase 14 units/L (7-56); Albumin 4.8 g/dL (3.9-5); Blood Urea Nitrogen 6 mg/dL (7-17); Calcium 9.7 mg/dL (8.4-10.2); Hemolysis Index 2
[2020-09-01 14:43] LABS: BUN/Creatinine Ratio 10
[2020-09-01 15:22] LABS: Platelet Count 195 K/mm3 (140-440)
[2020-09-01] MEDS ORDERED: ACETAMINOPHEN 500 MG TAB PO ONE (15:46)
[2020-09-01] MEDS ORDERED: METOCLOPRAMIDE 10 MG TAB PO ONE (16:03)
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
[2020-09-01] MEDS ORDERED: ONDANSETRON 4 MG ODT TAB PO ONE (17:25)
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
== END 2020-09-01 17:45 | disposition home or self-care (01) ==
LOC: ED 11:18
DX: O23.41 Unspecified infection of urinary tract in pregnancy, first trimester (principal); O21.8 Other vomiting complicating pregnancy; O26.891 Other specified pregnancy related conditions, first trimester; K04.7 Periapical abscess without sinus; Z3A.01 Less than 8 weeks gestation of pregnancy; Z79.899 Other long term (current) drug therapy; Z98.890 Other specified postprocedural states
CPT/HCPCS: 36415; 70110; 76801; 76802; 80053; 81001; 84702; 85025; 86900; 86901; 87076; 87086; 87186; Q0162

== ENCOUNTER 2021-09-14 09:32 | Emergency (ER) | payer MEDICAID ==
[2021-09-14 09:53] VITALS: BP 151/85
== END 2021-09-14 11:00 | disposition left against medical advice (07) ==
LOC: ED 09:32
DX: J11.1 Influenza due to unidentified influenza virus with other respiratory manifestations (principal); R06.02 Shortness of breath; Z53.21 Procedure and treatment not carried out due to patient leaving prior to being seen by health care provider